=== PATIENT | male | born 1940 | race Caucasian/White ===

== ENCOUNTER 2022-08-11 10:45 | Emergency (ER) | payer OTHER, SELFPAY ==
--- NOTE | ~2022-08-11 | XR_ITS ---
XR chest 1V portable DATE: 08/11/2022 12:23 INDICATION: Weakness. History of brain, bowel and prostate cancer TECHNIQUE: Portable upright AP chest on 09/07/2022 at 1220 hours COMPARISON: None FINDINGS: Bilateral pleural calcified plaques are noted suggesting prior asbestos exposure. There are patchy bilateral infiltrates and/or fibrotic changes involving particularly the mid and low er lung zones. No prior radiographs are available for comparison. Status post sternotomy. Multiple surgical clips overlie the heart, mediastinum and medial upper lung zones.. There is aortic calcification and mild tortuosity. Possible small right pleural effusion. No pneumothorax. Diffuse osteopenia. Mild osteoarthritic change at the glenohumeral joints. IMPRESSION: Prominent bilateral pleural calcified plaques suggesting prior asbestos exposure Infiltrates and/or interstitial fibrotic change involving particularly the mid and lower lung zones. Pneumonia, atelectasis, asbestosis, aspiration pneumonitis cerebral considerations in the differentia l diagnosis for the lung findings Reviewed, dictated and finalized at location A. IMPRESSION: Prominent bilateral pleural calcified plaques suggesting prior asbe stos exposure Infiltrates and/or interstitial fibrotic change involving particularly the mid and lower lung zones. Pneumonia, atelectasis, asbestosis, aspiration pneumoniti s cerebral considerations in the differential diagnosis for the lung findings
[2022-08-11 10:47] VITALS: PULSE 66
[2022-08-11 10:50] VITALS: BP 129/73; PULSE 83; RESP 16; TEMP 36.6; O2SAT 98
--- NOTE | 2022-08-11 11:10 | PC.NURSE ---
RN spoke with pts Son Brando who is the current women's health care nurse practitioner for the pt to get the name and phone number to the [facility]. [facility] is the [facility] and the person that handles the [facility] needs is Wily. A good number to reach Wily on is [phone].
--- NOTE | 2022-08-11 11:10 | PC.NURSE ---
A good number to reach son is [phone] (Brando)
--- NOTE | 2022-08-11 11:25 | PC.NURSE ---
RN spoke with Magui from [facility] and provided information to her about pt arriving to the ED by EMS.
--- NOTE | 2022-08-11 11:28 | PC.NURSE ---
Nadya from [facility] returned called and stated that if the family wanted to do extensive care that they can do revocation. Dr. Isidro had question and spoke with Hospice as well.
--- NOTE | 2022-08-11 11:49 | ECG_ITS ---
Measurements Intervals [place] Rate: 55 P: 36 NH: 175 QRS: -20 QRSD: 102 T: 18 QT: 403 QTc: 387 Interpretive Statements SINUS BRADYCARDIA WITH SINUS ARRHYTHMIA POSSIBLE LEFT ATRIAL ENLARGEMENT [-0.1mV P-WAVE IN V1/V2] NO PREVIOUS ECG AVAILABLE FOR COMPARISON Electronically Signed On 08-12-2022 12:11:58 CDT by Daxa Marcelo M.D.
--- NOTE | 2022-08-11 11:50 | ED.WEAKNESS ---
HPI - Weakness General Chief complaint: Weakness Stated complaint: weakness, stage 4 cancer Time Seen by Provider: 08/11/22 10:51 Source: patient and EMS Mode of arrival: EMS History of Present Illness HPI Narrative: THis is an 82 year old male with history of prostate cancer and reported brain and bowel cancer who presents from home for weakness. Patient states he was living in [place] but he moved here to live with his son. Patient states he has been on hospice for 8 months and transferred to [facility] in April. He states today he thought he was going to . He states he is having increased weakness and he is having difficulty getting himself up to perform ADLs. He states he is tired of dealing with the pain and weakness. He denies nausea, vomiting, chest pain or shortness of breath. He does report bilateral leg swelling that is getting worse. He is not sure if his son can take care of him. He states he wants off hospice and they don't seem to be able to help him. He also states he is ready to . Related Data Home Medications Medication Instructions Recorded Confirmed apixaban 5 mg tablet (Eliquis) 5 mg PO BID 08/11/22 08/11/22 aspirin 81 mg chewable tablet 81 mg PO DAILY 08/11/22 08/11/22 (Rossana Chewable Low Dose Aspirin) dexamethasone 4 mg tablet 4 mg PO DAILY 08/11/22 08/11/22 dorzolamide 22.3 mg-timolol 6.8 08/11/22 mg/mL eye drops fentanyl 37.5 mcg/hour transdermal 1 patch transdermal Q72H 08/11/22 08/11/22 patch fexofenadine 180 mg tablet 180 mg PO DAILY 08/11/22 08/11/22 furosemide 20 mg tablet (Lasix) 20 mg PO DAILY 08/11/22 08/11/22 hydromorphone 4 mg tablet 4 mg PO Q4H PRN pain 08/11/22 08/11/22 hyoscyamine sulfate 0.125 mg tablet 0.125 mg PO 08/11/22 latanoprost 0.005 % eye drops drp 08/11/22 loperamide 2 mg capsule 2 mg PO Q6H PRN Diarrhea 08/11/22 08/11/22 lorazepam 0.5 mg tablet 0.5 mg PO TID PRN Anxiety 08/11/22 08/11/22 naproxen sodium 220 mg capsule 220 mg PO Q8H PRN Pain 08/11/22 08/11/22 (Aleve) omeprazole 20 mg capsule,delayed 40 mg PO DAILY 08/11/22 08/11/22 release scopolamine base 1 mg over 3 days 08/11/22 transdermal patch sennosides 8.6 mg tablet (senna) 8.6 mg PO DAILY 08/11/22 08/11/22 Allergies Allergy/AdvReac Type Severity Reaction Status Date / Time No Known Allergies Allergy Verified 08/11/22 11:14 Review of Systems Constitutional: Constitutional: Reports fatigue and Reports weakness Cardiovascular: Cardiovascular: Denies syncope, Denies rapid heart rate, Denies irregular heart rhythm, Reports leg edema and Denies dyspnea Respiratory: Respiratory: Denies chest congestion, Denies hemoptysis, Denies excessive phlegm production and Denies dyspnea Gastrointestinal: Gastrointestinal: Denies abdominal pain, Denies hematochezia, Denies diarrhea and Denies vomiting Genitourinary: Genitourinary: Denies hematuria, Denies dysuria, Denies penile discharge and Denies testicular pain Musculoskeletal: Musculoskeletal: Reports myalgias, Denies joint swelling, Denies loss of height and Denies muscle weakness Neurologic: Denies syncope, Denies focal weakness and Denies weakness PMFSH Past Medical History Medical History (Updated 08/11/22 @ 18:28 by Love Isidro MD) CHF (congestive heart failure) 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
[2022-08-11 12:06] LABS: Basophils Percent Auto 0.5 % (0.2-1.2); Eosinophils Percent Auto 0.5 % (0-4.4); Hematocrit 35.7 % (42.0-52.0); Hemoglobin 11.7 g/dL (14.0-18.0); Immature Granulocyte Absolute 0.03 K/mm3 (0.00-0.031); Immature Granulocyte Percent A 0.3 % (0-0.5); Lymphocytes Percent Auto 12.6 % (18.3-44.2); Mean Corpuscular HGB Conc 32.8 g/dl (32-36); Mean Corpuscular Hemoglobin 28.3 pg (26-34); Mean Corpuscular Volume 86.2 fl (80-100); Mean Platelet Volume 9.5 fl (7.4-10.4); Monocytes Absolute Auto 0.8 K/mm3 (0.1-0.6); Neutrophils Absolute Auto 6.8 K/mm3 (1.3-6.7); Neutrophils Percent Auto 77.1 % (45.5-73.1); Platelet Count Result 260 k/mm3 (150-375); Red Blood Count 4.14 M/mm3 (4.6-6.20); Red Cell Distribution Width 17.8 % (11.5-14.5); White Blood Count 8.8 K/mm3 (4.5-10.0)
[2022-08-11 12:16] LABS: INR 1.2
[2022-08-11 12:18] LABS: Partial Thromboplastin Time 36.4 SECONDS (22.3-36.8)
[2022-08-11 12:19] LABS: Appearance Urine Clear (Clear); Bacteria Urine None Seen /hpf; Bilirubin Urine Negative (Negative); Blood Urine Negative (Negative); Color Urine Yellow (Yellow); Glucose Urine UA Negative (Negative); Granular Casts Urine Present /lpf; Hyaline Casts Urine Present /lpf; Ketones Urine Negative (Negative); Leukocyte Esterase Ur 1+ LEU/UL (Negative); Nitrate Urine Negative (Negative); Protein Urine Trace mg/dL (Negative); RBC Urine 0-2 /hpf (0-2); Specific Grav Ur 1.012 (1.001-1.035); Squamous Epithelial Cell Urine Occasional /hpf (Few); WBC Clumps Urine Present /HPF; pH Urine 5.5 (5.0-9.0)
[2022-08-11 12:21] LABS: Add Urine Microscopic? YES
[2022-08-11 12:22] LABS: Alanine Aminotransferase 86 U/L (6-50); Albumin Level 3.5 g/dL (3.5-5.1); Alkaline Phosphatase 279 U/L (38-126); Anion Gap 4 mmol/L (8-16); Aspartate Amino Transferase 144 U/L (17-59); Bilirubin,Total 0.7 mg/dL (0.2-1.3); Blood Urea Nitrogen 20 mg/dL (9-20); Calcium 8.6 mg/dL (8.4-10.2); Carbon Dioxide 32 mmol/L (22-30); Chloride 94 mmol/L (98-107); Estimated Glomerular Filt Rate > 60; Glucose 125 mg/dL (65-110); Magnesium 2.2 mg/dL (1.6-2.3); Sodium 130 mmol/L (137-145)
[2022-08-11 12:30] LABS: NT Pro B Type Natriuretic Pept 1380 pg/mL (19.9-100)
[2022-08-11 12:42] LABS: Influenza A QL RT-PCR Negative (Negative); Influenza B QL RT-PCR Negative (Negative); SARS-CoV-2 RNA PCR Negative (Negative)
[2022-08-11 12:48] VITALS: BP 133/65; PULSE 67; RESP 15; O2SAT 97
[2022-08-11] MEDS: HYDROmorphone HCL (*CRX) 4 MG TABLET PO (13:25)
--- NOTE | 2022-08-11 13:27 | PCCCNOTE ---
Phone call received from credit charge authorizerDarin per Dr. Isidro request to meet with patient and family. Met with patient and son and daughter in law in ER room 7. Patient is current with [facility] and family reports happy with care. Last night, he woke and had a lot of phlegm, coughing and he can't handle it anymore and asked his son to call 911. Patient wanting hospice but not really wanting to at home, patient would want to be in the hospital. Educated and explained that if he got the point that he met criteria for inpatient hospice and that was imminent then the hospice agency could work with hospital to get him inpatient. Patient feeling that he needs more care, discussed hospice at a skilled nursing or hospice at home w/ private caregivers. Family members seem conflicted, son had reported that he did not think he could take care of him anymore but patient's daugther in law seems like she could do more and had helped her Aunt. Patient just keeps saying how hard the nights are. Encouraged him and family to have a conversation with [facility]. Patient really wanting to stay at [facility] with hospice, again educated the he does not meet criteria and that his insurance would not pay. CHACHO Martin as the medical and bedside RN confirms this and patient verbalizes understanding. Provided resources for skilled nursing lists and private caregiver lists. Educated that [facility] has social workers that can assist with finding a skilled nursing and private caregivers also. No additional questions, patient and family now wanting to discharge. dental patient coordinator advises that will speak with RN senior quality control technician for weekend. Phone call to [facility] left message with after hours intake for return call from the RN.
== END 2022-08-11 15:32 | disposition hospice, home (50) ==
PROVIDERS: Emergency Provider General Practice
DX: C79.51 Secondary malignant neoplasm of bone (principal); C79.31 Secondary malignant neoplasm of brain; G89.3 Neoplasm related pain (acute) (chronic); R53.1 Weakness; I50.9 Heart failure, unspecified; Z85.46 Personal history of malignant neoplasm of prostate; Z79.01 Long term (current) use of anticoagulants; Z79.82 Long term (current) use of aspirin; Z79.891 Long term (current) use of opiate analgesic; Z20.822 Contact with and (suspected) exposure to COVID-19
CPT/HCPCS: 36415; 71045; 80053; 81001; 83735; 83880; 85025; 85610; 85730; 87086; 87088; 87636; 93005; 99283; A9270